=== PATIENT | male | born 1950 | race American Indian/Alaskan Native ===

== ENCOUNTER 2024-02-11 00:34 | Emergency (ER) | payer MEDICARE, MEDICAID ==
[2024-02-11 00:54] LABS: BASOPHILS ABSOLUTE AUTO 0.04 K/uL (0.00-0.10); BASOPHILS PERCENT AUTO 0.2 % (0.1-1.3); HEMATOCRIT 43.4 % (38.4-49.7); HEMOGLOBIN 15.9 g/dL (12.9-16.9); IMMATURE GRAN ABSOLUTE AUTO 0.12 K/uL (0.00-0.23); IMMATURE GRAN PERCENT AUTO 0.6 % (0.0-0.7); LYMPHOCYTES ABSOLUTE AUTO 0.84 K/uL (0.8-3.3); MEAN CORPUSCULAR HEMOGLOBIN 35.7 pg (31.6-35.5); MEAN CORPUSCULAR HGB CONC 36.6 g/dL (31.6-35.5); MEAN CORPUSCULAR VOLUME 97.3 fL (81.4-99.0); MONOCYTES ABSOLUTE AUTO 0.88 K/uL (0.20-0.90); MONOCYTES PERCENT AUTO 4.2 % (3.3-12.6); NEUTROPHILS ABSOLUTE AUTO 19.19 K/uL (1.0-7.6); PLATELET COUNT,PLT 160 K/uL (130-375); RED BLOOD CELL COUNT 4.46 M/uL (4.14-5.76); WHITE BLOOD CELL COUNT,WBC 21.1 K/uL (3.2-11.0)
[2024-02-11] MEDS: Sodium Chloride 0.9% 1,000 ML IV SCH (01:05)
[2024-02-11 01:13] LABS: A/G RATIO 1.2 (1.2-2.2); ALANINE AMINOTRANSFERASE,ALT 29 U/L (12-78); ALBUMIN 4.3 g/dL (3.4-5.0); ALKALINE PHOSPHATASE 105 U/L (46-116); ANION GAP 20.6 mmol/L (5.0-14.0); ASPARTATE AMNIOTRANSFERASE,AST 32 U/L (15-37); BILIRUBIN TOTAL 0.4 mg/dL (0.2-1.0); BLOOD UREA NITROGEN,BUN 10 mg/dL (7-18); CALCIUM 8.5 mg/dL (8.5-10.1); CARBON DIOXIDE,CO2 21 mmol/L (21-32); CHLORIDE,CL 101 mmol/L (100-108); CREATININE 0.8 mg/dL (0.8-1.3); ESTIMATED GFR 93 mL/min (>60); GLUCOSE RANDOM 149 mg/dL (74-106); POTASSIUM,K 3.6 mmol/L (3.6-5.2); PROTEIN TOTAL,TP 7.9 g/dL (6.4-8.2); SODIUM,NA 139 mmol/L (140-148)
[2024-02-11] MEDS: Ondansetron 4 MG/2 ML SDV IVPUSH ONE (03:32)
[2024-02-11] MEDS: propofoL 100 ML IV SCH (06:23)
[2024-02-11] MEDS: Succinylcholine 200 MG/10 ML MDV ONE (06:28)
[2024-02-11] MEDS ORDERED: Rocuronium 50 MG/5 ML Vial ONE (06:38)
[2024-02-11] MEDS ORDERED: Propofol 200 MG/20 ML SDV ONE (06:38)
[2024-02-11] MEDS ORDERED: Succinylcholine 200 MG/10 ML MDV ONE (06:38)
[2024-02-11] MEDS: propofoL 100 ML ONE (07:26)
== END 2024-02-11 07:38 ==
LOC: JP.ED 00:34
DX: I61.9 Nontraumatic intracerebral hemorrhage, unspecified (principal); F10.129 Alcohol abuse with intoxication, unspecified; Z79.899 Other long term (current) drug therapy
CPT/HCPCS: 31500; 36415; 70450; 71045; 80053; 80307; 82140; 82550; 85025; 96361; 96365; 96375; 99285; 99291; J0330; J2405; J2704; J7030; J3490